=== PATIENT | male | born 1965 | race Caucasian/White ===

== ENCOUNTER 2021-08-29 10:33 | Outpatient (REF) | payer MEDICARE, SELFPAY ==
[2021-08-29 12:29] LABS: Hepatitis B Surface Antigen* Negative (Negative)
[2021-08-29 13:24] LABS: Hepatitis C Virus Antibody* Negative (Negative)
== END 2021-08-29 10:34 | disposition home or self-care (01) ==
LOC: NPINS 10:33
PROVIDERS: PCP Internal Medicine Nephrology; Visit Provider Internal Medicine Nephrology
DX: N18.9 Chronic kidney disease, unspecified (principal)
CPT/HCPCS: 86706; 86803

== ENCOUNTER 2021-12-16 15:48 | Outpatient (REF) | payer MEDICARE, SELFPAY ==
[2021-12-16 16:10] LABS: Hemoglobin* 11.1 gm/dL (13.5-17.5)
[2021-12-16 17:06] LABS: Hepatitis B Surface Antigen* Negative (Negative)
== END 2021-12-16 15:49 | disposition home or self-care (01) ==
LOC: LAB 15:48
PROVIDERS: PCP Internal Medicine Nephrology; Visit Provider Internal Medicine Nephrology
DX: N18.9 Chronic kidney disease, unspecified (principal)
CPT/HCPCS: 36415; 85018; 87340

== ENCOUNTER 2022-09-03 06:19 | Outpatient (REF) | payer MEDICARE, SELFPAY ==
[2022-09-05 09:56] LABS: Hepatitis B Surface Antigen* Negative (Negative)
[2022-09-05 10:22] LABS: Hepatitis B Surface Antibody* Negative (Negative)
== END 2022-09-03 06:20 | disposition home or self-care (01) ==
LOC: NPINS 06:19
PROVIDERS: PCP Internal Medicine Nephrology; Visit Provider Internal Medicine Nephrology
DX: N18.9 Chronic kidney disease, unspecified (principal)
CPT/HCPCS: 82310; 82728; 83970; 86706; 87340

== ENCOUNTER 2024-09-28 07:33 | Outpatient (CLI) | payer MEDICARE, SELFPAY | END 2024-09-28 07:34 | disposition home or self-care (01) | PROVIDERS: PCP Internal Medicine; Visit Provider Orthopaedic Surgery | DX: R42 Dizziness and giddiness (principal); M79.602 Pain in left arm; M79.604 Pain in right leg | CPT/HCPCS: A0425; A0433 ==

== ENCOUNTER 2024-09-28 08:18 | Emergency (ER) | payer MEDICARE, SELFPAY ==
[2024-09-28] VITALS (12 sets, daily range): BP systolic 129–166; BP diastolic 96–122; PULSE 89–94; RESP 18; TEMP 36.2; O2SAT 94–98; BMI 25.6
--- NOTE | 2024-09-28 08:18 | CRLHL7_ITS ---
For Patients: As a result of the Century Cures Act, medical imaging exams and procedure reports are released immediately into your electronic medical record. You may view this report before your referring provider. If you have questions, please contact your health care provider. INDICATION: Left-sided weakness, history of leukemia. TECHNIQUE: CT head without contrast. COMPARISON: None. FINDINGS: CSF spaces: Within normal limits for age. Brain parenchyma: High-density collection on the right extending from the margin of the basal ganglia across the internal capsule into the right thalamus. This measures 2.9 x 1.6 x 1.4 centimeters. Collar of low-density adjacent consisting with adjacent edema. No midline shift. Mild cerebral atrophy. Skull base and calvarium: The visualized paranasal sinuses and mastoid air cells demonstrate no acute or significant findings. The visualized orbits are grossly unremarkable. No skull fractures. Atherosclerosis. IMPRESSION: Acute intraparenchymal hemorrhage measuring 2.9 x 1.6 x 1.4 centimeters within the right internal capsule extending into the thalamus. Results called to Dr. Tom at 0830 on 09/28/2024 Please note that all CT scans at this facility use dose modulation, iterative reconstruction, and/or weight-based dosing when appropriate to reduce radiation dose to as low as reasonably achievable. Dictated by Saran Johnson MD @ 09/28/2024 8:31:17 AM (Electronically Signed)
--- NOTE | 2024-09-28 08:31 | ED.GENADULT ---
HPI - General Adult General Date Seen: 09/28/24 Chief complaint: Altered Mental Status Stated complaint: stroke Time Seen by Provider: 09/28/24 08:20 Source: patient, EMS and RN notes reviewed Mode of arrival: ambulatory Limitations: no limitations History of Present Illness HPI narrative: This 59-year-old male is brought in on a [facility] for her stroke by EMS. Patient is a dialysis patient and was snf through his 3-1/2 hour dialysis when he started feeling extremely dizzy, reportedly had a near syncopal episode. He is noted to have left arm and leg weakness with this. On arrival here he states he can lift his left arm now, could not before. He is anticoagulated with Eliquis. He reportedly has a history of a prior stroke in 2019 with unknown details at this time. Patient was met in the hallway as soon as the ambulance got here. He is alert, interactive, hemodynamically stable, speech is normal, normal facial function. He can lift his left arm up. His hand biologist strengths are about 3/5 on the left, 5/5 on the right. He is strapped on the gurney. His dorsiflexion and plantar flexion of his feet are normal and symmetrical at this time. He has no tremors. He does have dysmetria with this left arm. Patient's glucose was within normal range per EMS. Have asked radiology technicians to get a noncontrast head CT. EMS did report that they gave patient 2.5 mg IV Valium due to his severe anxiety, did reports that it helped significantly. Related Data Home Medications ?Medication ?Instructions ?Recorded ?Confirmed Dialyvite 09/28/24 apixaban 2.5 mg tablet (Eliquis) 2.5 mg PO BID 09/28/24 09/28/24 atorvastatin 40 mg tablet 40 mg PO DAILY 09/28/24 09/28/24 gabapentin 100 mg capsule mg PO 09/28/24 hydroxyzine HCl 09/28/24 metoprolol succinate 25 mg 25 mg PO DAILY 09/28/24 09/28/24 tablet,extended release 24 hr metoprolol succinate 50 mg 50 mg PO DAILY 09/28/24 09/28/24 tablet,extended release 24 hr Allergies Allergy/AdvReac Type Severity Reaction Status Date / Time Penicillins Allergy Unknown Verified 09/28/24 08:33 Sulfa (Sulfonamide Allergy Unknown Verified 09/28/24 08:33 Antibiotics) Review of Systems Status of ROS: Reports: 6 or more systems reviewed and unremarkable except as noted in History and below Exam Const: Vital Signs, click to edit/add: Vital Signs - 24 hr 09/28/24 08:18 09/28/24 08:28 09/28/24 08:36 Temperature 97.1 F L Pulse Rate 94 Pulse Rate [Pulse Oximeter] 90 Respiratory Rate 18 Blood Pressure Blood Pressure [Le ft Upper Arm] 151/111 H Pulse Oximetry 97 98 98 Oxygen Delivery Me thod Room Air Room Air 09/28/24 08:38 09/28/24 08:42 09/28/24 08:45 Temperature Pulse Rate 91 91 93 Pulse Rate [Pulse Oximeter] Respiratory Rate Blood Pressure 129/103 H 134/99 H Blood Pressure [Le ft Upper Arm] Pulse Oximetry 94 97 98 Oxygen Delivery Me thod 09/28/24 08:47 09/28/24 08:52 09/28/24 08:57 Temperature Pulse Rate 89 Pulse Rate [Pulse Oximeter] Respiratory Rate Blood Pressure 142/99 H 136/96 H 155/105 H Blood Pressure [Le ft Upper Arm] Pulse Oximetry 98 Oxygen Delivery Me thod 09/28/24 09:02 09/28/24 09:07 09/28/24 09:12 Temperature Pulse Rate Pulse Rate [Pulse Oximeter] Respiratory Rate Blood Pressure 166/111 H 155/122 H 148/112 H Blood Pressure [Le ft Upper Arm] Pulse Oximetry Oxygen Delivery Me thod After coming back from his head CT and after I talked to Neurology, patient is alert, interactive, no apparent distress, excessively talkative. Speech is normal, smiling. Breathing easy on room air. He is on cardiac monitoring and pulse oximetry. CV regular rate and rhythm, do not hear any significant murmur. Lungs clear, no wheezing or crackles, no tachypnea. His arms now ir 5/5 strength including the left hand. There is slight dysmetria but it is difficult to say, he seems to maybe have some decreased functionality and is just flinging his arm towards his nose. His leg strength is 5/5 and symmetric at this time. No noted lower extremity edema. Documenting provider has reviewed patient's vital signs: yes Course Course ED Course: Patient went to head CT immediately, did visualize this myself and there does seem to be intraparenchymal brain bleed on the right side. We are pushing images to [facility], will page the stroke neurologist right away. Reevaluation(s) Time of Reevaluation #1: 08:49 Reevaluation #1: Have just reviewed with patient that he does have an intracranial bleed. He states that is what happened in 2019. He is on Eliquis so his catheter does not clog. He states he keeps ?beeping ?during dialysis. They put him on this to prevent that. He and I reviewed the need transfer to ICU. He states he should have just kept his mouth shut. He is very afraid of needles. His blood pressure is borderline, we have had some in the 130s but now were back up into the 140s, on arrival he was systolic 150s. I have discussed the importance of getting the Kcentra as well as starting the nicardipine drip to prevent further bleeding. Please see his physical exam at this time under the physical exam. His neurologic status has improved. Did review with him that it certainly could worsen with increased bleeding. Pharmacy is here getting the PCC for us. We will need a 2nd line to do the nor car to Pean drip and have told the patient we really have to do this. 8:37 a.m.: spoke with Dr. Huerta ICU at [facility], he will accept the patient. Time of Reevaluation #2: 09:08 Reevaluation #2: EMS here to transfer patient. Consultations Consultation #1: Dr. López was called and he called back. He does have the images up there, agrees with me that there is an intracranial bleed. He believes this is the right basal ganglia/thalamus. Reviewed with him that the patient is on Eliquis. He wants patient treated with PCC. Nicardipine to keep blood pressures below systolic of 140. Time: 08:23 Vital Signs Vital signs: Initial Vital Signs Temperature 97.1 F L 09/28/24 08:18 Temperature Source Temporal Artery Scan 09/28/24 08:18 Pulse Rate 90 09/28/24 08:18 Respiratory Rate 18 09/28/24 08:18 Blood Pressure 151/111 H 09/28/24 08:18 Blood Pressure Mean 124 H 09/28/24 08:18 Blood Pressure Position Supine 09/28/24 08:18 Pulse Oximetry 97 09/28/24 08:18 Oxygen Delivery Method Room Air 09/28/24 08:18 Vital Signs Temperature 97.1 F L 09/28/24 08:18 Pulse Rate 90 09/28/24 08:18 Respiratory Rate 18 09/28/24 08:18 Blood Pressure 151/111 H 09/28/24 08:18 Pulse Oximetry 97 09/28/24 08:18 Oxygen Delivery Method Room Air 09/28/24 08:18 Temperature 97.1 F L 09/28/24 08:18 Pulse Rate 89 09/28/24 08:47 Respiratory Rate 18 09/28/24 08:18 Blood Pressure 148/112 H 09/28/24 09:12 Pulse Oximetry 98 09/28/24 08:47 Oxygen Delivery Method Room Air 09/28/24 08:28 Medications Administered Medications: Discontinued Medications Generic Name Dose Route Start Last Admin Trade Name Balbir PRN Reason Stop Dose Admin Prothrombin Complex Concent ( 80 mls @ 160 mls/hr 09/28/24 08:55 09/28/24 09:31 Human) 2,184 unit/ IV IVPB 09/28/24 09:24 Infused Miscellaneous Supplies ONCE ONE Infusion Nicardipine/Sodium Chloride 20 mg in 200 mls @ 50 mls/hr 09/28/24 08:39 09/28/24 09:30 Nicardipine Infusion 0.1 Mg/Ml IV 75 mls/hr DIRECTED KINZA Infusion Protocol Medical Decision Making Lab Data Lab results reviewed: Yes I reviewed the patient's lab results Labs: Lab Results 09/28/24 Range/Units 08:30 WBC 5.60 (4.50-11.00) K/uL RBC 3.32 L (4.30-5.90) m/uL Hgb 11.9 L (13.5-17.5) gm/dL Hct 35.9 L (37.0-53.0) % MCV 108 H (80-100) fL MCH 36 H (26-34) pg MCHC 33 (32-36) gm/dL RDW Coeff of Angel 13.4 (11.5-15.5) % Plt Count 161 (140-440) K/uL Neut % (Auto) 62.2 (42.0-72.0) % Lymph % (Auto) 21.4 (20-44) % Garvin % (Auto) 10.5 (0.0-11.0) % Eos % (Auto) 4.5 (0.0-7.0) % Baso % (Auto) 0.5 (0.0-3.0) % Neut # (Auto) 3.48 (1.7-7.0) K/uL Lymph # (Auto) 1.20 (0.90-2.90) K/uL Garvin # (Auto) 0.60 (0.00-0.90) K/UL Eos # (Auto) 0.25 (0.00-0.50) K/uL Baso # (Auto) 0.03 (0.00-0.30) K/uL Abs Immat Gran (auto) 0.05 (0.00-0.30) K/uL Imm/Tot Granulo (auto) 0.9 % Diff Slide Review Acceptable Review (Acceptable) INR 1.09 (0.91-1.10) APTT 48 H (23-33) Seconds Sodium 132 L (135-149) mmol/L Potassium 3.7 (3.6-5.1) mmol/L Chloride 97 (96-114) mmol/L Carbon Dioxide 27 (20-32) mmol/L Anion Gap 8 (7-15) mEq/L BUN 9 (7-30) mg/dL Creatinine 5.4 H (0.5-1.5) mg/dL Estimated Creat Clear 15.77 Estimated GFR 11 ml/min Glucose 92 (60-115) mg/dL Calcium 9.5 (8.4-10.6) mg/dL Total Bilirubin 0.6 (0.1-1.5) mg/dL AST 71 H (12-35) U/L ALT 33 (4-50) U/L Alkaline Phosphatase 168 H (40-150) U/L Total Protein 7.0 (6.0-8.3) g/dL Albumin 4.1 (3.3-5.0) g/dL Imaging Data CT scan - head: Attestation: I have reviewed the pertinent imaging results. Radiologist's impression: Patient: SOTO ALEXANDER Facility:?[facility] Patient ID:?[id number] Site Patient ID:?[id number]. Site :?[id number] Study:?CT-Head STROKE CODE; WITHOUT-09/28/2024 8:25:09 AM Ordering Physician:Adelaida Castorena Final Report: INDICATION: Left-sided weakness, history of leukemia. TECHNIQUE: CT head without contrast. COMPARISON: None. FINDINGS: CSF spaces: Within normal limits for age. Brain parenchyma: High-density collection on the right extending from the margin of the basal ganglia across the internal capsule into the right thalamus. This measures 2.9 x 1.6 x 1.4 centimeters. Collar of low-density adjacent consisting with adjacent edema. No midline shift. Mild cerebral atrophy. Skull base and calvarium: The visualized paranasal sinuses and mastoid air cells demonstrate no acute or significant findings. The visualized orbits are grossly unremarkable. No skull fractures. Atherosclerosis. IMPRESSION: Acute intraparenchymal hemorrhage measuring 2.9 x 1.6 x 1.4 centimeters within the right internal capsule extending into the thalamus. Results called to Dr. Tom at 0830 on 09/28/2024 Please note that all CT scans at this facility use dose modulation, iterative reconstruction, and/or weight-based dosing when appropriate to reduce radiation dose to as low as reasonably achievable. Dictated by Saran Johnson MD @ 09/28/2024 8:31:17 AM (Electronic Signature) ECG Data Attestation: I personally reviewed and interpreted this ECG as follows: (Normal sinus rhythm 95 beats per minute. Q-waves in inferior lead 3. Prolonged QT of 502 milliseconds.) Prior ECG tracings: not available for review Critical Care Time Critical Care Time Critical Care Time: Yes Attestation: The patient required my highest level preparedness to intervene emergently and I personally spent this critical care time directly and personally managing the patient. This critical care time included: Obtaining a history; Examining the patient; Pulse oximetry; Ordering and reviewing of studies; Arranging urgent treatment with development of a management plan; Evaluation of patients response to treatment; Frequent reassessment discussions with other providers. This critical care time was performed to assess and manage the high probability of imminent life-threatening deterioration that could result in multiorgan failure. It was exclusive of separate billable procedures and treating other patients and teaching time. Total Critical Care Time in Minutes: 50 Discharge Plan Discharge Clinical Impression: Intracranial hemorrhage Patient Disposition: [facility] Discharge Location: [facility] Prescriptions: No Action atorvastatin 40 mg tablet 40 mg PO DAILY metoprolol succinate 50 mg tablet extended release 24 hr 50 mg PO DAILY gabapentin 100 mg capsule PO metoprolol succinate 25 mg tablet extended release 24 hr 25 mg PO DAILY Eliquis 2.5 mg tablet 2.5 mg PO BID hydroxyzine HCl Dialyvite Stand Alone Forms: MyHealth Info Instructions
[2024-09-28 08:42] LABS: Hematocrit 35.9 % (37.0-53.0); Hemoglobin* 11.9 gm/dL (13.5-17.5); Immature Granulocytes Abs Auto 0.05 K/uL (0.00-0.30); Immature Granulocytes Pct Auto 0.9 %; Lymphocytes Absolute Auto 1.20 K/uL (0.90-2.90); Mean Corpuscular HGB Conc 33 gm/dL (32-36); Mean Corpuscular Hemoglobin 36 pg (26-34); Mean Corpuscular Volume 108 fL (80-100); RDW Coefficient of Variation % 13.4 % (11.5-15.5); Red Blood Count 3.32 m/uL (4.30-5.90); White Blood Count* 5.60 K/uL (4.50-11.00)
[2024-09-28 08:47] LABS: Slide Review Reflex Yes
[2024-09-28 08:54] LABS: Albumin* 4.1 g/dL (3.3-5.0); Chloride* 97 mmol/L (96-114); Potassium* 3.7 mmol/L (3.6-5.1); Sodium* 132 mmol/L (135-149)
[2024-09-28] MEDS: NICARDIPINE INFUSION 0.1 mg/ml 20 MG/200 ML BAG 50 MG IV (08:55)
[2024-09-28 08:57] LABS: Alanine Aminotransferase* 33 U/L (4-50); Anion Gap 8 mEq/L (7-15); Aspartate Amino Transferase* 71 U/L (12-35); Blood Urea Nitrogen* 9 mg/dL (7-30); Calcium* 9.5 mg/dL (8.4-10.6); Carbon Dioxide* 27 mmol/L (20-32); Creatinine* 5.4 mg/dL (0.5-1.5); Est. Creatinine Clearance* 15.77; Estimated Glomerular Filt Rate 11 ml/min; Glucose* 92 mg/dL (60-115); Total Protein* 7.0 g/dL (6.0-8.3)
[2024-09-28 08:58] LABS: INR 1.09 (0.91-1.10); Prothrombin Time 15.0 Seconds
[2024-09-28] MEDS: INTRAVIA CONTAINER IVPB (09:01)
[2024-09-28] MEDS: PROTHROMBIN COMPLEX IVPB (09:01)
[2024-09-28 09:11] LABS: Alkaline Phosphatase* 168 U/L (40-150); Bilirubin Total* 0.6 mg/dL (0.1-1.5)
[2024-09-28 09:51] LABS: Slide Review Acceptable Review (Acceptable)
== END 2024-09-28 09:41 | disposition short-term general hospital (02) ==
PROVIDERS: Emergency Provider Family Medicine; PCP Internal Medicine
DX: I62.9 Nontraumatic intracranial hemorrhage, unspecified (principal); Z79.01 Long term (current) use of anticoagulants; Z99.2 Dependence on renal dialysis
CPT/HCPCS: 36415; 70450; 80053; 85025; 85610; 85730; 94761; 99284; 99291; J2404; J7168

== ENCOUNTER 2024-09-28 09:09 | Outpatient (CLI) | payer MEDICARE, SELFPAY | END 2024-09-28 09:10 | disposition home or self-care (01) | PROVIDERS: PCP Internal Medicine; Visit Provider Family Medicine | DX: I62.9 Nontraumatic intracranial hemorrhage, unspecified (principal) | CPT/HCPCS: A0425; A0427 ==